=== PATIENT | male | born 1945 | race Caucasian/White ===

== ENCOUNTER 2019-04-25 20:45 | Emergency (ER) | payer MEDICARE, BC ==
[~2019-04-25] VITALS: Ht 185.4 cm; Wt 95.5 kg
[2019-04-25] MEDS ORDERED: clindamycin 600mg/D5W 50ml 50 ML IV ONE (21:15)
[2019-04-25] MEDS ORDERED: normal saline 1000ML IV soln IVB ONE (21:15)
[2019-04-25] MEDS ORDERED: acetaminophen 325mg tablet PO STA (21:15)
[2019-04-25 21:36] LABS: CLARITY,URINE CLEAR (Clear); COLOR,URINE STRAW (Yellow); GLUCOSE, URINE NEGATIVE (Neg); KETONES,URINE NEGATIVE (Neg); LEUKOCYTE ESTERASE ,URINE NEGATIVE (Neg); NITRITES, URINE NEGATIVE (Neg); OCCULT BLOOD,URINE SMALL (Neg); PH,URINE 6.5 (4.8-8.0); PROTEIN,URINE NEGATIVE (Neg); UROBILINOGEN,URINE 0.2 E.U/dL (0.2-1.0)
[2019-04-25 21:38] LABS: BASOPHILS # (AUTO) 0.1 X10'3 (0-0.2); EOSINOPHILS # (AUTO) 0.2 X10'3 (0-0.9); EOSINOPHILS % (AUTO) 1.8 % (0-6); HEMATOCRIT 44.8 % (42.0-52.0); HEMOGLOBIN 15.7 g/dl (14.0-17.9); LYMPHOCYTES # (AUTO) 2.8 X10'3 (1.1-4.8); LYMPHOCYTES % (AUTO) 29.3 % (21-51); MEAN CORPUSCULAR HEMOGLOBIN 30.2 PG (27.0-31.0); MEAN CORPUSCULAR VOLUME 86.2 FL (78-98); MEAN PLATELET VOLUME 7.3 FL (7.4-10.4); MONOCYTES # (AUTO) 0.6 X10'3 (0-0.9); MONOCYTES % (AUTO) 6.5 % (2-12); NEUTROPHILS # (AUTO) 5.9 X10'3 (1.8-7.7); NEUTROPHILS % (AUTO) 61.4 % (42-75); PLATELET COUNT 235 X10'3 (140-440); RED CELL DISTRIBUTION WIDTH 14.3 % (11.5-14.5); WHITE BLOOD COUNT 9.6 X10'3 (4.5-11.0)
[2019-04-25 21:40] LABS: UA COLLECTION TYPE CLN CATCH MIDSTREAM
[2019-04-25 21:42] LABS: BACTERIA,URINE NONE SEEN /HPF (Neg); RBC,URINE 0-2 /HPF (0-2); SQUAMOUS EPITHELIAL CELL,UR NONE SEEN /LPF (FEW); WBC,URINE NONE SEEN /HPF (0-4)
[2019-04-25 21:48] LABS: ALANINE AMINOTRANSFERASE 25 U/L (12-78); ALBUMIN/GLOBULIN RATIO 1.1 (1.1-1.5); ALKALINE PHOSPHATASE 52 IU/L (46-116); ANION GAP 7 (8-16); ASPARTATE AMINO TRANSFERASE 24 U/L (10-37); BLOOD UREA NITROGEN 13 MG/DL (7-18); CALCIUM 8.5 MG/DL (8.5-10.1); CHLORIDE 108 MMOL/L (99-107); CREATININE 1.45 MG/DL (0.60-1.10); GLUCOSE 115 MG/DL (70-104); MAGNESIUM 2.1 MG/DL (1.5-2.4); SODIUM 143 MMOL/L (135-145); TOTAL CARBON DIOXIDE 28.2 MMOL/L (24-32); TOTAL PROTEIN 7.5 G/DL (6.4-8.2); eGFR 48 ML/MIN
[2019-04-25] MEDS ORDERED: CLIN-97 PO (21:56)
--- NOTE | 2019-04-25 22:33 | NUR ---
HYPERTENSIVE PATIENT DID NOT TAKE HIS BP PILL TONIGHT
[2019-04-25 22:34] VITALS: BP 192/110
== END 2019-04-25 23:46 | disposition home or self-care (01) ==
LOC: ER 20:46
DX: S51.811A Laceration without foreign body of right forearm, initial encounter (principal); L03.113 Cellulitis of right upper limb; J02.9 Acute pharyngitis, unspecified; I10 Essential (primary) hypertension; Z87.891 Personal history of nicotine dependence; Z79.2 Long term (current) use of antibiotics; W57.XXXA Bitten or stung by nonvenomous insect and other nonvenomous arthropods, initial encounter; Y93.89 Activity, other specified; Y92.89 Other specified places as the place of occurrence of the external cause; Y99.8 Other external cause status
CPT/HCPCS: 36415; 80053; 81001; 83605; 83735; 84145; 85025; 87040; 93005; 96365; 99284; J7030; J3490

== ENCOUNTER 2022-02-12 16:33 | Emergency (ER) | payer MEDICARE, BC ==
[~2022-02-12] VITALS: Ht 185.4 cm; Wt 95.0 kg
[~2022-02-12 16:33] MED LIST: CLIN-97 PO
[2022-02-12 16:39] VITALS: BP 177/113
== END 2022-02-12 19:46 | disposition home or self-care (01) ==
LOC: ER 16:34
DX: M25.511 Pain in right shoulder (principal); E78.00 Pure hypercholesterolemia, unspecified; I10 Essential (primary) hypertension; Z79.899 Other long term (current) drug therapy
CPT/HCPCS: 73030; 73060; 99284